=== PATIENT | female | born 1980 | race Caucasian/White ===

== ENCOUNTER 2024-09-18 02:04 | Inpatient (IN) | payer BC, SELFPAY ==
[2024-09-17 21:12] VITALS: BP 167/105
--- NOTE | 2024-09-17 22:10 | ED.GENMED ---
History of Present Illness
General
Chief Complaint: Abdominal Pain
Source: patient
Exam Limitations: none
Time Seen by Provider: 09/17/24 22:01
History of Present Illness
History of Present Illness:
Pleasant 44-year-old female presents with right upper quadrant abdominal pain. She states that it began yesterday but has progressively worsened today. Today there was a republican that she was out but she was only able to eat crackers. She states
that any type of oral intake exacerbates her symptoms. Denies fever, chills reports some nausea without vomiting. States that her pain is located in the right upper quadrant and radiates through to her right back. Denies chest pain or shortness
of breath. Denies previous abdominal surgeries. She did have a ovarian cyst removed as well as a cyst on her breast. Last intake was approximately 11 AM today.
Phy Exam
General Physical Exam
General Presentation: moderate distress
General age: appears stated age
General Skin: warm
General Habitus: normal
General Mental: alert
General Hydration: appears well hydrated
ENT Exam
ENT Exam: EOMI, pharynx normal, neck supple and normocephalic
Eye Exam
Eye Exam: PERRL, cornea clear and conjunctiva normal
Cardiovascular Exam
Cardiovascular Exam: regular rate/rhythm, no edema, no murmur and normal peripheral pulses
Pulmonary Exam
Pulmonary Exam: lungs clear, no respiratory distress, no rales, no crackles, no rhonchi, no stridor, no wheezing and no cough
Gastrointestinal Exam
Gastrointestinal Exam: normal bowel sounds, soft, non distended, guarding, rebound and tender
Palpation: right upper quadrant: Severe tenderness
Neurological Exam
Neurological Exam: alert, oriented x3, no motor deficits and speech normal
Musculoskeletal Exam
Musculoskeletal Exam: full ROM and no edema
Skin Exam
Skin Exam: normal color, warm/dry, no rash and no petechia
Psychiatric Exam
Psychiatric Exam: normal mood/affect
Course
Orders/Labs/Results
Orders:
Orders
09/17/24 22:11
0.9% Sodium Chloride 1000 ml [Nss] 1,000 ml IV BOLUS
Ondansetron Injectable [Zofran] 4 mg IV NOW STA
US Abdomen Complete/Upper Urgent
Comment:
Reason For Exam: ruq abd pain
09/17/24 22:14
Urinalysis Reflex To Culture Urgent
Date Specimen was Collected: 09/18/24
Time Specimen was Collected: 00:54
Ketorolac [Toradol] 15 mg IV NOW STA
Test Result ONCE
09/17/24 22:44
Complete Blood Count/With Diff Urgent
Comprehensive Metabolic Panel Urgent
HCG, Serum Qualitative Screen Urgent
Lipase Urgent
PTT Urgent
Prothrombin Time Urgent
09/18/24 00:09
CT Abd/pelvis W Iv Cont Urgent
Comment:
Reason For Exam: RUQ abd pain
Piperacillin/Tazo 4.5 Gram [Zosyn] 4.5 gram in 100 ml IV NOW
09/18/24 01:10
Urine Microscopic Reflex Cult Urgent
09/18/24 01:51
Admit/Transfer Patient As Directed
Co-Sign Provider:
Level of Care: Inpatient admission
Assign to:: Medical/Surgical
Physician / Group: hospitalist
Diagnosis: choledocholithiasis
Reason for Hospitalization: biliary cholic, obstructing choledocholithiasis
Expected length of stay greater than two midnights?: Yes
ELOS- Estimated Length of Stay in days: 2
I certify the patient meets the requirements for IP care: Yes
09/18/24 01:52
Code Status As Directed
Resuscitation Status: Full Code
PRN Pain Medication Management As Directed
May give lesser potent ordered pain med per pt: Yes
preference::
Protocol:: Medication orders for pain may be administered in a
manner that supports deferring to patient preference
when the pt is:
- Requesting an ordered lesser potent pain medication.
Least to most potent pain medications are defined
as: acetaminophen < NSAID < tramadol < opioids
(morphine, oxycodone, hydromorphone).
- Requesting a lesser dose of the same medication IF
ORDERED.
- Requesting a less intrusive route of administration
if both routes are prescribed by the provider (PO <
IV).
09/18/24 02:00
Flush (0.9% Sodium Chloride) [Flush (Nss)] See Dose Instructions IV PER PROTOCOL
09/18/24 03:28
Acetaminophen [Tylenol] 650 mg PO Q4HPRN PRN
HYDROmorphone [Dilaudid] 0.5 mg IV Q4HPRN PRN
Ketorolac [Toradol] 10 mg IV Q6HPRN PRN
Lactated Ringers [Lr] 1,000 ml IV 60 mls/hr
Ondansetron Injectable [Zofran] 4 mg IV Q6HPRN PRN
09/18/24 03:28
Consult Notification Routine
Specialty to Notify: Gastroenterology
GASTROINTESTINAL CONSULT Routine
Consulting Provider: Sarath Caballero
Was physician already notified: No
Reason for consult: choledocholithiasis, transaminitis, nml lipase and tbili
SURGICAL CONSULT Routine
Consulting Provider: Josiah Schultz
Was physician already notified: Yes
Reason for consult: choledocholithiasis,
MR Mrcp Without Routine
Comment:
Reason For Exam: choledocholithiasis, stone in cbd
Recent pill cam endoscopy?: No
Activity As Directed
Activity Level: With Assistance
Vital Signs As Directed
Frequency: Per unit guidelines
DX Deep Vein Thrombosis Video Routine
09/18/24 05:48
Complete Blood Count/No Diff IN AM
Magnesium IN AM
09/18/24 Breakfast
NPO
Allow oral meds: No
Allow clear liquids: Sips of Clears
09/18/24 08:00
Pantoprazole [Protonix IV] 40 mg IV DAILY
09/18/24 18:00
Enoxaparin Sodium [Lovenox] 40 mg SC QPM
Abnormal Lab Results
09/17/24 09/18/24
22:44 01:10
Hgb 11.5 L g/dL
(12.0-16.0)
Hct 36.1 L %
(37.0-47.0)
MCV 79.9 L fL
(81.0-99.0)
MCH 25.4 L pg
(27.0-31.0)
MCHC 31.9 L g/dL
(33.0-37.0)
MPV 10.7 H fL
(7.4-10.4)
Absolute Lymphs (auto) 1.0 L 10^3/uL
(1.2-3.4)
Lymphocytes % 15.1 L %
(20.5-51.1)
Potassium 3.2 L mmol/L
(3.5-5.1)
BUN 5 L mg/dl
(7-17)
Glucose 110 H mg/dl
(70-99)
Total Bilirubin 5.1 H mg/dl
(0.2-1.3)
AST 368 H U/L
(14-36)
ALT 518 H* U/L
(0-35)
Alkaline Phosphatase 156 H U/L
(38-126)
Urine Ketones 3+ A
(Negative)
Ur Occult Blood Reflex 3+ A
(Negative)
Urine Bilirubin 2+ A
(Negative)
Leukocyte Esterase Rfl Trace A
(Negative)
Urine RBC 3-6 A /HPF
(0-2)
Urine Bacteria (Reflex) Few A
(Negative)
09/17/24 22:44
09/17/24 22:44
Vital Signs
Initial and Last Documented VS:
Initial Vital Signs
Temp Pulse Resp BP Pulse Ox
98.2 F 99 18 167/105 100
09/17/24 21:12 09/17/24 21:12 09/17/24 21:12 09/17/24 21:12 09/17/24 21:12
Last Documented Vital Signs
Temp Pulse Resp BP Pulse Ox
98.5 F 71 16 132/84 98
09/18/24 03:03 09/18/24 03:03 09/18/24 03:03 09/18/24 03:03 09/18/24 04:45
*Radiology
Radiology exam reviewed: radiology read reviewed
*Pulse Oximetry
Patient hypoxic: no
*Critical Care Note
Total Time (30-74mins, 75-104mins- exclusive of procedures): Not Applicable
Update Note
Update Note:
Spoke with Josiah Schultz, general surgery who recommends CAT scan and admission to hospitalist service. He was okay with us starting Zothienn. She will need an MRI, GI consult, admit to medicine. She likely has choledocholithiasis and potentially
ascending cholangitis
CT ABDOMEN/PELVIS WITH CONTRAST
IMPRESSION:
1. Multiple stones seen within the distal CBD, with largest measuring up to 1.3 x 0.5 cm, and smaller stone measuring up to 5 mm. The CBD is enlarged measuring up to 9 mm. Findings compatible with choledocholithiasis.
2. Mild peripancreatic stranding, can be correlated with signs or symptoms of pancreatitis. No pseudocyst formation. No bowel obstruction. Normal appendix. Cholelithiasis.
Incidentals:
- No obstructive uropathy.
- No hepatic or pancreatic mass.
- No abdominal aortic aneurysm.
- No acute osseous abnormality.
- No acute abnormality within the visualized lungs.
- No acute abnormality within the visualized soft tissues.
Case finalized on Sep 18 2024 12:47AM ET
ED Attending Note
-
Portions of this chart may have been created with voice recognition software.� Occasional wrong word or��sound alike� substitutions may have occurred due to the inherent limitations of voice recognition software.
Discharge Plan
Departure
Patient Disposition: Admit
Date of Disposition: 09/18/24
Time of Disposition: 01:05
Admit to: Telemetry
Presentation/result/management discussed w/ accepting MD/DO: Hospitalist
Condition: Fair
Discharge Problem:
Choledocholithiasis
Interventions
Interventions:
*Risk Screen - Suicide Last Done: 09/17/24 22:28
*General Assessment Last Done: 09/17/24 22:28
*Neglect/Abuse Screening Last Done: 09/17/24 22:28
ED- Fall Risk Assessment Last Done: 09/17/24 22:28
*ED COVID-19 Vaccine History Last Done: 09/17/24 22:28
*Nursing Disposition Last Done: 09/18/24 02:56
CW-Wanpxa-Rhcavxcjyq Assessment Last Done: 09/17/24 22:28
Discharge Date and Time
Discharge Date/Time: 09/18/24 02:57
[2024-09-17 22:28] VITALS: BMI 39.6
[2024-09-17] MEDS: TORADOL 15 MG IV (22:45)
[2024-09-17] MEDS: NSS 1000 IV (22:45)
[2024-09-17] MEDS: ZOFRAN 4 MG IV (22:45)
[2024-09-17 22:52] LABS: % Basophils 0.9 % (0-2); % Immature Granulocytes 0.5 % (0-0.5); % Lymphocytes 15.1 % (20.5-51.1); % Monocytes 8.4 % (1.7-9.3); % Neutrophils 71.1 % (42.2-75.2); Absolute Basophils 0.1 10^3/uL (0-0.2); Absolute Eosinophils 0.3 10^3/uL (0-0.7); Absolute Monocytes 0.5 10^3/uL (0.1-0.6); Absolute Neutrophils 4.6 10^3/uL (1.4-6.5); Hematocrit 36.1 % (37.0-47.0); Hemoglobin 11.5 g/dL (12.0-16.0); Mean Corp Hgb Conc. 31.9 g/dL (33.0-37.0); Mean Corpuscular Hgb 25.4 pg (27.0-31.0); Mean Corpuscular Volume 79.9 fL (81.0-99.0); Mean Platelet Volume 10.7 fL (7.4-10.4); Nucleated Red Blood Cells % 0 %; Platelet Count 277 10^3/uL (130-400); Red Blood Cell Count 4.52 10^6/uL (4.20-5.40); Red Cell Dist. Width 13.8 % (11.5-14.5); White Blood Cell Count 6.4 10^3/uL (4.8-10.8)
[2024-09-17 23:04] LABS: INR 1.07; PT 14.4 Sec (11.4-14.6)
[2024-09-17 23:05] LABS: APTT 29.6 Sec (23.4-35.0)
[2024-09-17 23:06] LABS: HCG, Serum Qualitative Screen Negative
[2024-09-17 23:47] LABS: ALT (SGPT) 518 U/L (0-35); AST (SGOT) 368 U/L (14-36); Albumin 4.5 g/dl (3.5-5.0); Alkaline Phosphatase 156 U/L (38-126); Blood Urea Nitrogen 5 mg/dl (7-17); Calcium 9.3 mg/dl (8.4-10.2); Carbon Dioxide 24 mmol/L (22-30); Chloride 101 mmol/L (98-107); Estimated Creatinine Clearance > 125 ml/min; Glucose 110 mg/dl (70-99); Lipase 102 U/L (23-300); Potassium 3.2 mmol/L (3.5-5.1); Sodium 135 mmol/L (135-145); Total Bilirubin 5.1 mg/dl (0.2-1.3); Total Protein 7.4 g/dl (6.3-8.2); eGFR > 60.00
[2024-09-18] VITALS (13 sets, daily range): BP systolic 121–161; BP diastolic 65–93; BMI 38.4
[2024-09-18] MEDS: ZOSYN 100 IV (00:15)
[2024-09-18 01:17] LABS: Urine Albumin Negative (Neg - Trace); Urine Bilirubin 2+ (Negative); Urine Character Clear (Clear); Urine Color Yellow; Urine Glucose Negative (Negative); Urine Ketone 3+ (Negative); Urine Leukocyte Trace (Negative); Urine Nitrite Negative (Negative); Urine Occult Blood 3+ (Negative); Urine Urobilinogen 1+ (Neg - 1+)
[2024-09-18 01:27] LABS: Urine Bacteria Few (Negative); Urine White Cell 0-2 /HPF (0-5)
--- NOTE | 2024-09-18 01:42 | HPS.HSE ---
Family Physician
-
Family Physician: * NONE
Chief Complaint
-
Right upper quadrant abdominal pain
History of Present Illness
This is a 41-year-old female was past medical history significant for hypertension and GERD presenting to the emergency department with approximately 2 days of abdominal pain.
The pain began at around 2 AM abruptly about 2 days ago. She reports a right upper quadrant painful sensation that lasted several minutes and then appeared to resolve on its own so that she was able to sleep. The following day she started to have
more persistent squeezing abdominal pain and some bloating. She had nausea but denied any vomiting. She denied having any fevers or chills. Today she reported that the pain was more severe and appeared to be radiating to the back. She still
continued to deny any nausea or vomiting. She reports no prior history of kidney stones. She denies gallstones. She denies any dysuria, hematuria frequency or incontinence. She denied any melena or hematochezia. Patient denies any alcohol use.
In the emergency department she was afebrile with a blood pressure of 134/80 and a pulse of 99. She was satting 98% on room air. She had no leukocytosis hemoglobin was 11.5 which was stable. White count 6.4 and normal platelet count.
Electrolytes only notable for a K of 3.2 with otherwise normal BUN and creatinine. She had elevated AST to 308, ALT 11/04/2017 and mild alk phos elevation. Lipase was normal. Ultrasound shows dilated CBD of 9 mm and no gallstones. He had a CT of
the abdomen pelvis which confirmed distal CBD stones of about 1.3 x 0.5cm and additional 5mm stones noted. No GB distention or pericholecystic fluid described. Mild peripancreatic stranding reported.
Medical History
Past Medical History
Past Medical History: Reports GERD and HTN
Past Surgical History: Reports Gynocological (ovarian cyst removal) and Other (benign lumpectomy)
Social History
Tobacco: Non-smoker
Alcohol: None
Drug: None
Personal:
Living: With Family
Employment: Employed
Family History
Family History: Diabetes and Hypertension
Allergies / Home Medications
Allergies reflects when Allergies were last updated in [facility].
Home Medications with original date entered in [facility]
Allergy/Medication List:
Allergies
Allergy/AdvReac Type Severity Reaction Status Date / Time
No Known Allergies Allergy Unverified 09/17/24 21:11
Carvedilol 6.25 mg tablet, 1 tablet p.o. twice daily
Nexium 40 mg tablet, 1 tablet p.o. daily
Hydrochlorothiazide 12.5 mg tablet, 1 tablet p.o. daily
Review of Systems
-
History Source: Patient
Constitutional: Reports No Symptoms
EENT: Reports No Symptoms
Respiratory: Reports No Symptoms
Cardiac: Reports No Symptoms
Abdomen/GI: Reports Abdominal Pain
: Reports No Symptoms
Musculoskeletal: Reports No Symptoms
Skin: Reports No Symptoms
Neurological: Reports No Symptoms
Endocrine: Reports No Symptoms
Hematologic/Lymphatic: Reports No Symptoms
Psych: Reports No Symptoms
Physical Exam
Vital Signs
Vital Signs
Temp Pulse Resp BP Pulse Ox
98.2 F 99 18 134/80 100
09/17/24 21:12 09/17/24 21:12 09/17/24 22:28 09/18/24 00:00 09/18/24 00:45
Physical Exam
General: Well Developed, Well Nourished and Pain
HEENT: NormoCephalic, Anicteric and Moist mucous membranes
Respiratory: Clear
Cardiac: S1/S2 and Regular Rhythm
Breast: Deferred by me
GI: Soft, Non Distended, Normal Bowel Sounds and Tender
Rectal: Deferred by Provider
Genito-urinary: Deferred by me
Musculoskeletal: No Clubbing and No Cyanosis
Skin: Warm
Neuro: AO x 3
Hematologic/Lymphatic: No Lymphadenopathy
Psych: Calm
Laboratory Results
-
09/17/24 22:44
09/17/24 22:44
Laboratory Results
PT 14.4 Sec (11.4-14.6) 09/17/24 22:44
INR 1.07 09/17/24 22:44
APTT 29.6 Sec (23.4-35.0) 09/17/24 22:44
Total Bilirubin 5.1 mg/dl (0.2-1.3) H 09/17/24 22:44
AST 368 U/L (14-36) H 09/17/24 22:44
ALT 518 U/L (0-35) H* 09/17/24 22:44
Alkaline Phosphatase 156 U/L (38-126) H 09/17/24 22:44
Lipase 102 U/L (23-300) 09/17/24 22:44
Data Reviewed
-
CT Scan: Report Reviewed by me
Ultrasound: Report Reviewed by me
Lab Data: Labs Reviewed by me
Old Records: Reviewed
Impression/Plan
-
IMPRESSION:
44 F w/ choledocholithiasis and elevated LFTs w/o acute cholecystitis. No cholangitis.
PLAN:
1. Choledocholithiasis - Stones in CBD but no GB stone, acute cholecystitis or cholangitis. Pain but otherwise non-toxic.
- admit to med/surg
- NPO, pain control and antiemetics
- maintenance hydration
- hold further abx unless condition changes
- MRCP in am
- GI consult
- surgery consulted and aware
2. Hypokalemia - On hctz
- check mag
- replete K for now and monitor
3. GERD
- iv ppi daily for now
4. HTN
- continue carvedilol
- hold hctz
DVT PPX - lovenox sq
Code status - Full Code
[2024-09-18] MEDS: KCL 270 MEQ IV (04:05)
[2024-09-18] MEDS: LR 1000 IV ×2 (04:05→22:30)
--- NOTE | 2024-09-18 05:01 | PTCARENOTE ---
Pt received from ED via stretcher. Ambulated to bed independently. AAOx3, verbalizes being a 'little anxious' Oriented to surroundings and plan of care discussed. Admission and assessment completed. Reports pain 2/10 in R upper abdomen as
tolerable. Started menses, supplies provided. Last BM 09/17, reports pale stools. RAC IV painful when flushed, VAT RN contacted for restart. RH w/LR and K rider infusing without complication. Call jennings within reach.
[2024-09-18 06:52] LABS: Hematocrit 32.4 % (37.0-47.0); Hemoglobin 10.3 g/dL (12.0-16.0); Mean Corp Hgb Conc. 31.8 g/dL (33.0-37.0); Mean Corpuscular Hgb 25.1 pg (27.0-31.0); Mean Platelet Volume 11.5 fL (7.4-10.4); Platelet Count 264 10^3/uL (130-400); Red Cell Dist. Width 13.8 % (11.5-14.5); White Blood Cell Count 5.2 10^3/uL (4.8-10.8)
[2024-09-18 07:14] LABS: ALT (SGPT) 408 U/L (0-35); AST (SGOT) 270 U/L (14-36); Albumin 3.7 g/dl (3.5-5.0); Alkaline Phosphatase 141 U/L (38-126); Blood Urea Nitrogen 4 mg/dl (7-17); Calcium 8.7 mg/dl (8.4-10.2); Carbon Dioxide 24 mmol/L (22-30); Chloride 105 mmol/L (98-107); Direct Bilirubin 3.5 mg/dl (0.0-0.4); Estimated Creatinine Clearance 120 ml/min; Glucose 100 mg/dl (70-99); Potassium 3.6 mmol/L (3.5-5.1); Sodium 138 mmol/L (135-145); Total Bilirubin 4.7 mg/dl (0.2-1.3); Total Protein 6.4 g/dl (6.3-8.2); eGFR > 60.00
[2024-09-18] MEDS: NSS (PRESERVATIVE FREE) 10 ML IV (08:06)
[2024-09-18] MEDS: PROTONIX IV 40 MG IV (08:07)
--- NOTE | 2024-09-18 09:21 | CON.GS ---
Addendum entered and electronically signed by Ollie Herman MD 09/18/24 11:38:
Patient seen examined. Agree with assessment plan as document above.
Patient is a 44 yo F with a PMH of GERD c/b Graves's esophagus, HTN, and s/p ovarian cystectomy who presents with 2 days of worsening upper abdominal pain. She states that over the past 1 to 2 months she has had intermittent more mild attacks of
discomfort particularly with heavy fatty foods. 2 days ago she was awakened in the middle of the night with severe epigastric discomfort. Her symptoms appeared to initially ease though immediately returned and worsened throughout the course of
next 24 hours prompting presentation to the ED. No nausea or vomiting. No fevers or chills. She does note pale stools and orange-colored urine. She denies any jaundice.
Gen: NAD
Abd: soft, tender in epigastrium, ND, obese, non-peritoneal
Labs, ultrasound, and CT scan imaging were reviewed.
Patient is a 44 yo F p/w choledocholithiasis
The natural history and pathophysiology of biliary and stone disease was discussed. Anatomy was briefly reviewed. Role of cholecystectomy in preventing future episodes of biliary colic, cholecystitis, or choledocholithiasis was discussed. We
briefly discussed a laparoscopic cholecystectomy with possible cholangiogram. GI consult noted. Timing of cholecystectomy pending workup and management by GI. All questions answered.
-- GI consult noted
-- Timing of lap natasha pending work-up and management
-- Will continue to follow
Original Note:
Consultation
-
Date/Time Consultation Requested: 09/18/24 0328
Requesting Provider: Ronald
Reason for Consultation: choledocholithiasis
Medical History
-
Chief Complaint: abdominal pain
History of Present Illness:
Ms. Patrick is a 44 yo female with a h/o Graves's esophagus, HTN and ovarian cystectomy who presents with upper abdominal pain which began 2 days ago around 2am. She notes that over the past 1-2 months, she has had upper abdominal discomfort with
rich or heavy meals intermittently and had been avoiding trigger foods. Unfortunately, 2 days ago, she awakened in the middle of the night with upper abdominal pain which was more severe than previous. It eased enough for her to fall back asleep but
then returned and persisted with onset of nausea yesterday causing her to present to the ED for evaluation. She denies vomiting and notes nausea is currently resolved. She notes that her last stool was acholic and her urine has been neon orange. On
exam, she has tenderness to the epigastric area and the RUQ. She denies fevers or chills.
Past Medical History
Past Medical History: GERD (Graves's) and HTN
Past Surgical History: Gynecological (ovarian cystectomy) and Other (lumpectomy (benign))
Social History
Tobacco: Non-Smoker
Alcohol: None
Personal:
Living: With Family
Employment: Employed
Family History
Family History: Diabetes and Hypertension
Allergies / Home Medications
Allergy/AdvReac Type Severity Reaction Status Date / Time
No Known Allergies Allergy Unverified 09/17/24 21:11
Review of Systems
-
History Source: Patient
All other systems: Negative unless noted
A 10 point review of systems was completed, and was negative except as per HPI.
Physical Exam
Vital Signs
Temp Pulse Resp BP Pulse Ox
98.5 F 85 16 136/88 99
09/18/24 07:15 09/18/24 07:15 09/18/24 07:15 09/18/24 07:15 09/18/24 07:15
09/17/24 09/18/24 09/19/24
06:59 06:59 06:59
Actual Weight 101.293 kg
Body Mass Index (BMI) 38.4
Lab Results
09/18/24 05:48
09/18/24 05:48
WBC 5.2 10^3/uL (4.8-10.8) 09/18/24 05:48
Hgb 10.3 g/dL (12.0-16.0) L 09/18/24 05:48
Hct 32.4 % (37.0-47.0) L 09/18/24 05:48
Plt Count 264 10^3/uL (130-400) 09/18/24 05:48
Abs Immat Gran (auto) 0.0 10^3/uL (0-0.05) 09/17/24 22:44
Neutrophils % 71.1 % (42.2-75.2) 09/17/24 22:44
Physical Exam
General: Well Developed and Well Nourished
HEENT: Moist Mucous Membranes and Scleral Icterus
Respiratory: Non Labored Respirations
GI: Soft, Non Distended, Tender (RUQ and epigastric area) and Obese
Skin: Warm and Dry
Neuro: Awake, Alert and AO x 3
Psych: Calm
Assessment / Plan
-
44 yo female with h/o biliary colic x1-2 months now presenting with choledocholithiasis noted on CT imaging with elevation in LFTs (bilirubin 4.7 with direct bilirubin of 3.5, normal lipase)
US imaging wnl but follow up CT with noted cholelithiasis and choledocholithiasis with possible pancreatitis but no pericholecystic stranding or edema that would indicate acute cholecystitis. No leukocytosis or fevers. Vital signs are stable.
--Gastroenterology consult pending. Anticipate she will require ERCP
--NPO for GI testing
--Discussed laparoscopic cholecystectomy as prevention for future episodes. Would recommend this to be done on this admission, timing TBD pending GI work up
--- NOTE | 2024-09-18 09:50 | W.PN.UPDATE ---
Update Note
Progress Note Update
Nonbillable addendum (H&P submitted around 145 AM)
Admitted with choledocholithiasis on CT. MRI pending. GS/GI consulting.
currently asymptomatic, NPO.
Assessment:
Choledocholithiasis with elevated T. Bili and elevated LFTs
- CT: Choledocholithiasis with common bile duct dilatation. Cholelithiasis
- Radiographic possibility of pancreatitis although lipase normal
- MRI/MRCP pending
- GI consulted; likely ERCP today. NPO for now
- GS consulted; lap natasha timing TBD
- pain control, anti-emetics
- continue IVF
- continue IV Zosyn, day 1
Hypokalemia
- continue KCL replacement
- mag normal
GERD
Graves esophagus
- IV PPI
Essential HTN by history
- hold HCTZ
- continue Carvedilol
Anemia, slightly microcytic
- check anemia workup
DVT ppx: Lovenox
Code: Full
--- NOTE | 2024-09-18 10:29 | CON.GI ---
Addendum entered and electronically signed by Sarath Caballero MD 09/18/24 14:14:
I saw and evaluated the patient. I reviewed the resident�s note and agree with findings and plan as documented in the resident�s note.
44yo female presents with several months of mild RUQ pain, then 2 days of severe RUQ pain, worse after meals. Also stool light colored. AST 368, ALT 518, TB 5. US shows 9mm CBD. CT shows distal CBD stones. Lipas normal. WBC normal.
ABD soft moderate tender RUQ
IMPRESSION:
Choledocholithiasis
Biliary colic
REC:
NPO
IV abx
Will schedule for ERCP either this afternoon or tomorrow depending on schedule
Plans underway for cholecystectomy after ERCP
Trend LFTs, CBC
MRI cancelled- not needed since CT confirms CBD stones, likely cause for her abd pain
Original Note:
Consultation
-
Date/Time Consultation Requested: 09/18/2024 3:28 AM
Date/Time Consultation Performed: 09/18/2024 10:25 AM
Requesting Provider: Alma Cardenas MD
Performing Provider: Sarath Caballero MD
Reason for Consultation: choledocholithiasis, transaminitis
Medical History
Chief Complaint / HPI
Chief Complaint: RUQ abdominal pain
History of Present Illness:
44-year-old female with PMH of GERD, hypertension, Graves's esophagus, ovarian cystectomy, who presented to ED on 09/17/2024 with RUQ abdominal pain that began 2 days MANAGER INFORMATION. Patient reports that abdominal pain has been waxing and waning for 1 to
2 months but worsened acutely necessitating her presentation. She reports abdominal pain worse with fatty meals which she has always avoided, however patient was awakened at 2 AM but was able to fall asleep afterwards. The pain returned and
persisted with nausea but no vomiting later in the day. Patient also reports acholic stool and greenish urine but denies fever, chills, or chest pain. While in the emergency department, patient was afebrile and vital signs were stable. AST is
elevated at 368, ALT 518, ALP 156, T. bili 5.1. Her potassium was 3.2 and hemoglobin 11.5.An abdominal ultrasound done was positive for 9 mm dilated common bile ducts with no gallstones. However, a follow-up CT scan of abdomen and pelvis with IV
contrast reported choledocholithiasis with common bile duct dilation, cholelithiasis and possible interstitial edematous pancreatitis. Patient was admitted and GI was consulted for further evaluation and management.
Today, patient is feeling better, reports minimal abdominal pain, denies nausea and vomiting, denies fever, chills, chest pain. She remains afebrile with normal white count. Transaminitis improving, T. bili down to 4.7 with direct bilirubin 3.8.
Past Medical History
Past Medical History: GERD, HTN and Other (Graves's esophagus)
Past Surgical History: Gynecological (Ovarian cystectomy, benign lumpectomy)
Social History
Tobacco: Non-Smoker
Alcohol: None
Drug: None
Personal:
Living: With Family
Employment: Not Employed
Allergies / Home Medications
Allergy/AdvReac Type Severity Reaction Status Date / Time
No Known Allergies Allergy Unverified 09/17/24 21:11
�Medication �Instructions �Recorded
carvedilol 6.25 mg tablet 6.25 mg PO BID 09/18/24
hydrochlorothiazide 12.5 mg tablet 12.5 mg PO DAILY 09/18/24
Review of Systems
-
History Source: Patient
Constitutional: Reports No Symptoms
EENT: Reports No Symptoms
Respiratory: Reports No Symptoms
Cardiac: Reports No Symptoms
Abdomen/GI: Reports Abdominal Pain; Denies Nausea or Vomiting
: Reports No Symptoms
Musculoskeletal: Reports No Symptoms
Skin: Reports No Symptoms
Neurological: Reports No Symptoms
Endocrine: Reports No Symptoms
Hematologic/Lymphatic: Reports No Symptoms
Vital Signs
Temp Pulse Resp BP Pulse Ox
98.5 F 85 16 136/88 99
09/18/24 07:15 09/18/24 07:15 09/18/24 07:15 09/18/24 07:15 09/18/24 07:15
Physical Exam
Exam
General: Well Developed, Well Nourished and No Apparent Distress
HEENT: Normocephalic, Anicteric and Atraumatic
Respiratory: Clear and Non Labored Respirations
Cardiac: S1/S2 and Regular Rhythm
GI: Soft, Non Distended, Normal Bowel Sounds and Tender (Mildly tender in RUQ)
Genito-urinary: No Costovertebral Tender
Musculoskeletal: No Clubbing, No Cyanosis and No Edema
Skin: Warm
Neuro: Awake, AO x 3 and Nonfocal/Grossly Intact
Hematologic/Lymphatic: No Lymphadenopathy
Psych: Calm
Results
WBC 5.2 10^3/uL (4.8-10.8) 09/18/24 05:48
Hgb 10.3 g/dL (12.0-16.0) L 09/18/24 05:48
Hct 32.4 % (37.0-47.0) L 09/18/24 05:48
MCV 79.0 fL (81.0-99.0) L 09/18/24 05:48
Plt Count 264 10^3/uL (130-400) 09/18/24 05:48
Absolute Neuts (auto) 4.6 10^3/uL (1.4-6.5) 09/17/24 22:44
PT 14.4 Sec (11.4-14.6) 09/17/24 22:44
INR 1.07 09/17/24 22:44
APTT 29.6 Sec (23.4-35.0) 09/17/24 22:44
Sodium 138 mmol/L (135-145) 09/18/24 05:48
Potassium 3.6 mmol/L (3.5-5.1) 09/18/24 05:48
Chloride 105 mmol/L (98-107) 09/18/24 05:48
Carbon Dioxide 24 mmol/L (22-30) 09/18/24 05:48
BUN 4 mg/dl (7-17) L 09/18/24 05:48
Creatinine 0.7 mg/dL (0.6-1.0) 09/18/24 05:48
Calcium 8.7 mg/dl (8.4-10.2) 09/18/24 05:48
Total Bilirubin 4.7 mg/dl (0.2-1.3) H 09/18/24 05:48
AST 270 U/L (14-36) H 09/18/24 05:48
ALT 408 U/L (0-35) H 09/18/24 05:48
Alkaline Phosphatase 141 U/L (38-126) H 09/18/24 05:48
Lipase 102 U/L (23-300) 09/17/24 22:44
Diagnostic Image Results:
CT abdomen/pelvis 09/18/2024:
1. Choledocholithiasis with common bile duct dilatation.
2. Cholelithiasis.
3. Possible acute interstitial edematous pancreatitis in the appropriate clinical context.
Abdominal ultrasound 09/17/2024:
No gallstones.
Slightly dilated common bile duct, 9 mm. Recommend correlation with liver function tests.
Suboptimal visualization of the pancreas.
Assessment / Plan
-
44-year-old female with PMH of GERD, hypertension, Graves's esophagus, ovarian cystectomy, who presented to ED on 09/17/2024 with RUQ abdominal pain that began [address] scan abdomen/pelvis positive for cholelithiasis, and
choledocholithiasis.
Assessment/plan:
#Acute abdominal pain-choledocholithiasis
-Transaminitis with cholecystic pattern, elevated direct bilirubin with choledocholithiasis confirmed on CT.
-N.p.o.
-Continue IV fluid.
-ERCP today following MRI for CBD stone retrieval.
-Eventually cholecystectomy during this admission per surgery.
-Pain control and antiemetics.
-Continue Zosyn.
#History of GERD
-Continue IV PPI
#Microcytic anemia
-Will defer anemia workup to primary team.
-
-
Thank you for consultation and allowing me to participate in the patient's care. Please call the signs and displays salesperson GI physician during the after hours with any questions or concerns.
[2024-09-18 10:41] LABS: Iron 72 ug/dl (37-170)
[2024-09-18 10:50] LABS: Percent Saturation 20 % (20-50); Total Iron Binding Capacity 354 ug/dl (265-497)
[2024-09-18] MEDS: COREG 6.25 MG PO ×2 (10:50→22:30)
[2024-09-18] MEDS: ZOSYN 50 IV ×3 (10:50→22:27)
[2024-09-18] MEDS: TYLENOL 650 MG PO (10:55)
--- NOTE | 2024-09-18 10:59 | CM ---
CM reviewed medical records. CM met with patient in room. Patient confirmed demographics. Patient lives with independently. Patient denies history of VN, SNF or DME. Patient does not have a PCP because she follows with her er manager.
Patient uses [facility] for medication services.
PLAN: home no needs
[2024-09-18 12:59] LABS: Ferritin 16.3 ng/ml (6.24-137)
[2024-09-18 13:30] LABS: Folate 9.1 ng/ml (2.76-20); Vitamin B12 743 pg/ml (239-931)
[2024-09-18] MEDS: ZOFRAN 4 MG IV (14:28)
[2024-09-18] MEDS: TORADOL 10 MG IV (14:28)
--- NOTE | 2024-09-18 16:10 | TRANSFER ---
pt arrived to unit at 1541 via stretcher from 1 acute care. LR running at 60ml/hr. pt ambulated from hallway to bed w/out assist. pt VSS. pt reports pain 10/09. assessment completed by this nurse.
[2024-09-18] MEDS: LOVENOX 40 MG SC (17:24)
--- NOTE | 2024-09-18 19:30 | PTCARENOTE ---
Assumed care of patient from previous RN, patient called down to GI lab for ERCP during change of shift. Patient alert and oriented, clothing removed, new gown provided. Patient ambulated from bed to stretcher. Will continue to monitor.
--- NOTE | 2024-09-18 22:00 | PTCARENOTE ---
Patient returned back from GI lab s/p ERCP with stent placed. Patient oriented, still drowsy from anesthesia. Ambulated short distance from stretcher to bed with assist of 2 person, patient unsteady. No complaints at this time, states she feels
better at this time, and less pressure present. Transferred back on 2LNC, oxygen sats in recovery low 90s. Will monitor on oxygen overnight. IVFs maintained, BPs elevated -- Coreg provided upon return, see MAR. Call jennings is within reach, will
monitor.
[2024-09-19] VITALS: BP 140/82
[2024-09-19] MEDS: DILAUDID 0.5 MG IV ×4 (00:04→22:50)
[2024-09-19] MEDS: TORADOL 10 MG IV ×2 (02:22→14:33)
[2024-09-19] MEDS: ZOSYN 50 IV ×4 (04:46→22:50)
[2024-09-19 07:46] LABS: Hematocrit 33.9 % (37.0-47.0); Hemoglobin 10.9 g/dL (12.0-16.0); Mean Corp Hgb Conc. 32.2 g/dL (33.0-37.0); Mean Corpuscular Hgb 25.2 pg (27.0-31.0); Mean Corpuscular Volume 78.5 fL (81.0-99.0); Mean Platelet Volume 11.4 fL (7.4-10.4); Platelet Count 248 10^3/uL (130-400); Red Blood Cell Count 4.32 10^6/uL (4.20-5.40); Red Cell Dist. Width 13.7 % (11.5-14.5); White Blood Cell Count 6.6 10^3/uL (4.8-10.8)
[2024-09-19 08:01] LABS: ALT (SGPT) 336 U/L (0-35); AST (SGOT) 175 U/L (14-36); Albumin 3.6 g/dl (3.5-5.0); Alkaline Phosphatase 130 U/L (38-126); Blood Urea Nitrogen 7 mg/dl (7-17); Calcium 8.7 mg/dl (8.4-10.2); Carbon Dioxide 19 mmol/L (22-30); Chloride 105 mmol/L (98-107); Estimated Creatinine Clearance 120 ml/min; Glucose 113 mg/dl (70-99); Potassium 4.1 mmol/L (3.5-5.1); Sodium 137 mmol/L (135-145); Total Bilirubin 2.8 mg/dl (0.2-1.3); Total Protein 6.5 g/dl (6.3-8.2); eGFR > 60.00
[2024-09-19 08:03] VITALS: BP 148/92
[2024-09-19] MEDS: COREG 6.25 MG PO ×2 (08:19→22:51)
[2024-09-19] MEDS: PROTONIX IV 40 MG IV (08:19)
[2024-09-19] MEDS: NSS (PRESERVATIVE FREE) 10 ML IV (08:19)
[2024-09-19] MEDS: FLUSH (NSS) 2 FLUSH IV ×5 (08:20→22:48)
--- NOTE | 2024-09-19 08:51 | W.PN.GI.CBS2 ---
Today's Communication / Plan
-
Please see assessment and plan for details.
Assessment / Plan
-
1. CBD stones: Status post ERCP with failed cannulation, status post pancreatic duct stent, overall doing well, with improved LFTs, no signs of pancreatitis. At this point will advance diet, continue to trend labs. Pending clinical course will
likely plan repeat ERCP on Saturday with Dr. Rodgers.
Subjective
Subjective
Date of Service: September 19, 2024
Patient okay, some mild right upper quadrant/back discomfort, though no severe pain, nausea, vomiting, no epigastric pain. No fevers or chills overnight.
Objective
Data Reviewed
Laboratory Data:
Laboratory Results
09/19/24 06:52
09/19/24 06:52
Laboratory Results
PT 14.4 Sec (11.4-14.6) 09/17/24 22:44
INR 1.07 09/17/24 22:44
APTT 29.6 Sec (23.4-35.0) 09/17/24 22:44
Magnesium 2.0 mg/dl (1.6-2.3) 09/18/24 05:48
Total Bilirubin 2.8 mg/dl (0.2-1.3) H 09/19/24 06:52
AST 175 U/L (14-36) H 09/19/24 06:52
ALT 336 U/L (0-35) H 09/19/24 06:52
Alkaline Phosphatase 130 U/L (38-126) H 09/19/24 06:52
Lipase 102 U/L (23-300) 09/17/24 22:44
Vital Signs and I&O:
Vital Signs
Temp Pulse Resp BP Pulse Ox
98.1 F 69 16 148/92 99
09/19/24 08:03 09/19/24 08:19 09/19/24 08:03 09/19/24 08:19 09/19/24 08:03
I&O
09/18/24 09/19/24 09/20/24
06:59 06:59 06:59
Intake Total 255 / 255 170 / 170
Balance 255 / 255 170 / 170
Physical Exam
Physical Exam
General: NAD
Abdomen: normal bowel sounds, soft, no tenderness, no masses or bruits, no ascites
--- NOTE | 2024-09-19 11:11 | W.PN.GS2 ---
Addendum entered and electronically signed by Ollie Herman MD 09/19/24 12:44:
Patient seen and examined. Agree with assessment as documented below.
No worsening abdominal pain. No nausea or vomiting. No fevers.
Gen: NAD
Abd: soft, mild tenderness, ND, non-peritoneal
Patient is a 44 yo F presenting with choledocholithiasis with elevated LFT's
AFVSS
LFT's trending back down
PPD#1 ERCP with failed cannulation, status post pancreatic duct stent
--Tolerating clears, advanced to FLD as per GI
--Repeat ERCP planned tentatively Saturday
--Timing of lap natasha pending work-up and management
Original Note:
Today's Communication / Plan
-
Diet as per GI
Assessment / Plan
-
44 yo female presenting with choledocholithiasis with elevated LFT's
AFVSS
LFT's trending back down
PPD#1 ERCP with failed cannulation, status post pancreatic duct stent
--Tolerating clears, advanced to FLD as per GI
--Repeat ERCP planned tentatively Saturday
--Timing of lap natasha pending work-up and management
Subjective Data
-
Date of Service: September 19, 2024
Patient seen and examined at bedside with Dr. Herman. Denies nausea, vomiting or pain.
Objective Data
-
Intake and Output
09/18/24 09/19/24 09/20/24
06:59 06:59 06:59
Intake Total 255 / 255 170 / 170
Balance 255 / 255 170 / 170
Intake:
Oral fluids 120 / 120
IV fluids (Total) 120 / 120 50 / 50
LR 50 / 50
IV piggybacks 135 / 135
Other:
Number of approximated MODERATE 1
amounts of urine
Vital Signs
Temp Pulse Resp BP Pulse Ox
98.1 F 69 16 148/92 99
09/19/24 08:03 09/19/24 08:19 09/19/24 08:03 09/19/24 08:19 09/19/24 08:03
Lab Results
09/19/24 06:52
09/19/24 06:52
Calcium 8.7 mg/dl (8.4-10.2) 09/19/24 06:52
Magnesium 2.0 mg/dl (1.6-2.3) 09/18/24 05:48
Total Bilirubin 2.8 mg/dl (0.2-1.3) H 09/19/24 06:52
Direct Bilirubin 3.5 mg/dl (0.0-0.4) H 09/18/24 05:48
AST 175 U/L (14-36) H 09/19/24 06:52
ALT 336 U/L (0-35) H 09/19/24 06:52
Alkaline Phosphatase 130 U/L (38-126) H 09/19/24 06:52
Total Protein 6.5 g/dl (6.3-8.2) 09/19/24 06:52
Albumin 3.6 g/dl (3.5-5.0) 09/19/24 06:52
Physical Exam
-
NAD
ABD soft, minimally tender to epigastric area, nd
--- NOTE | 2024-09-19 13:19 | W.PN.HOSP.TC ---
Today's Communication/Plan
-
continue IV Abx
full liquids
pain control
repeat ERCP Saturday
follow GI/GS recs
Assessment / Plan
Assessment / Plan
Assessment:
Choledocholithiasis with elevated T. Bili and elevated LFTs
- CT: Choledocholithiasis with common bile duct dilatation. Cholelithiasis
- s/p ERCP 09/18: with failed cannulation, status post pancreatic duct stent
- repeat ERCP 09/21
- GS consulted; lap natasha timing TBD pending repeat ERCP results
- pain control, anti-emetics
- continue IV Zosyn, day 2
- diet: full liquids
- trend LFTs, improving
Hypokalemia
- continue KCL replacement
- mag normal
GERD
Graves esophagus
- IV PPI continues
Essential HTN by history
- hold HCTZ
- continue Carvedilol
Anemia, slightly microcytic
- normal indices
- outpatient management
DVT ppx: Lovenox held as patient with active menses. SCDs ordered.
Code: Full
Anticipated Discharge: > 48 hours
Subjective/Interval History
-
Date of Service: September 19, 2024
mild RUQ pain/discomfort this AM, improved with pain meds
no nausea/vomiting/epigastric pain
Objective Data
-
Labs:
Laboratory Results
09/19/24
06:52
WBC 6.6
Hgb 10.9 L
Hct 33.9 L
Plt Count 248
Sodium 137
Potassium 4.1
Chloride 105
Carbon Dioxide 19 L
BUN 7
Creatinine 0.7
Glucose 113 H
Calcium 8.7
Total Bilirubin 2.8 H
AST 175 H
ALT 336 H
Alkaline Phosphatase 130 H
Vital Signs:
Vital Signs
Temp Pulse Resp BP Pulse Ox
98.1 F 69 16 148/92 99
09/19/24 08:03 09/19/24 08:19 09/19/24 08:03 09/19/24 08:19 09/19/24 08:03
I&O
09/18/24 09/19/24 09/20/24
06:59 06:59 06:59
Intake Total 255 / 255 170 / 170
Balance 255 / 255 170 / 170
Physical Exam
-
General: No Apparent Distress
HEENT: Normocephalic and Atraumatic
Respiratory: Negative Wheezes or Rales
Cardiac: Regular Rhythm and S1/S2
GI: Nondistended
Genito-urinary: No Costovertebral Tender
Musculoskeletal: No Edema
Neuro: AO x 3
Hematologic / Lymphatic: No Lymphadenopathy
Psych: Calm
Data Reviewed
-
Total Time Spent with Patient (in minutes): 44
Labs: Labs Reviewed by me
[2024-09-19 15:32] VITALS: BP 129/74
[2024-09-19] MEDS: LR 1000 IV (15:45)
[2024-09-19] MEDS: FLUSH (NSS) 4 FLUSH IV (15:47)
[2024-09-19] MEDS: ZOFRAN 4 MG IV ×2 (16:18→22:58)
[2024-09-19 23:00] VITALS: BP 131/60
[2024-09-20] MEDS: FLUSH (NSS) 2 FLUSH IV ×2 (04:11→21:27)
[2024-09-20] MEDS: ZOSYN 50 IV ×4 (04:11→21:26)
[2024-09-20] MEDS: TORADOL 10 MG IV ×3 (04:21→21:26)
[2024-09-20 07:00] VITALS: BP 143/82
[2024-09-20 07:38] LABS: % Basophils 0.4 % (0-2); % Eosinophils 2.9 % (0-6); % Immature Granulocytes 0.7 % (0-0.5); % Lymphocytes 14.6 % (20.5-51.1); % Monocytes 10.1 % (1.7-9.3); % Neutrophils 71.3 % (42.2-75.2); Absolute Eosinophils 0.2 10^3/uL (0-0.7); Absolute Immature Granulocytes 0.1 10^3/uL (0-0.05); Absolute Lymphocytes 1.1 10^3/uL (1.2-3.4); Absolute Monocytes 0.7 10^3/uL (0.1-0.6); Absolute Neutrophils 5.2 10^3/uL (1.4-6.5); Hematocrit 30.1 % (37.0-47.0); Hemoglobin 9.6 g/dL (12.0-16.0); Mean Corp Hgb Conc. 31.9 g/dL (33.0-37.0); Mean Corpuscular Hgb 25.1 pg (27.0-31.0); Mean Corpuscular Volume 78.8 fL (81.0-99.0); Mean Platelet Volume 11.2 fL (7.4-10.4); Nucleated Red Blood Cells % 0 %; Platelet Count 217 10^3/uL (130-400); Red Blood Cell Count 3.82 10^6/uL (4.20-5.40); Red Cell Dist. Width 14.3 % (11.5-14.5); White Blood Cell Count 7.2 10^3/uL (4.8-10.8)
[2024-09-20] MEDS: LR 1000 IV (07:42)
[2024-09-20] MEDS: PROTONIX IV 40 MG IV (07:44)
[2024-09-20] MEDS: NSS (PRESERVATIVE FREE) 10 ML IV (07:44)
[2024-09-20] MEDS: COREG 6.25 MG PO ×2 (07:44→21:25)
[2024-09-20 07:58] LABS: ALT (SGPT) 320 U/L (0-35); AST (SGOT) 205 U/L (14-36); Albumin 3.2 g/dl (3.5-5.0); Alkaline Phosphatase 106 U/L (38-126); Blood Urea Nitrogen 8 mg/dl (7-17); Calcium 8.6 mg/dl (8.4-10.2); Carbon Dioxide 25 mmol/L (22-30); Chloride 104 mmol/L (98-107); Direct Bilirubin 1.9 mg/dl (0.0-0.4); Estimated Creatinine Clearance 105 ml/min; Glucose 108 mg/dl (70-99); Potassium 3.5 mmol/L (3.5-5.1); Sodium 137 mmol/L (135-145); Total Bilirubin 2.7 mg/dl (0.2-1.3); Total Protein 5.8 g/dl (6.3-8.2); eGFR > 60.00
--- NOTE | 2024-09-20 09:07 | W.PN.GI.CBS2 ---
Today's Communication / Plan
-
Please see assessment plan for details.
Assessment / Plan
-
1. CBD stones: Status post ERCP with failed cannulation, status post pancreatic duct stent, overall doing okay, with improved LFTs, no signs of pancreatitis. Will continue to trend labs today, plan for repeat ERCP with Dr. Rodgers tomorrow. Surgery
following for cholecystectomy following clearance of CBD.
Subjective
Subjective
Date of Service: September 20, 2024
Patient feeling okay, some mild discomfort though no severe pain, nausea or vomiting, tolerating full code without difficulty. No fevers or chills.
Objective
Data Reviewed
Laboratory Data:
Laboratory Results
09/20/24 06:50
09/20/24 06:50
Laboratory Results
PT 14.4 Sec (11.4-14.6) 09/17/24 22:44
INR 1.07 09/17/24 22:44
APTT 29.6 Sec (23.4-35.0) 09/17/24 22:44
Magnesium 2.0 mg/dl (1.6-2.3) 09/18/24 05:48
Total Bilirubin 2.7 mg/dl (0.2-1.3) H 09/20/24 06:50
AST 205 U/L (14-36) H 09/20/24 06:50
ALT 320 U/L (0-35) H 09/20/24 06:50
Alkaline Phosphatase 106 U/L (38-126) 09/20/24 06:50
Lipase 102 U/L (23-300) 09/17/24 22:44
Vital Signs and I&O:
Vital Signs
Temp Pulse Resp BP Pulse Ox
97.9 F 73 16 143/82 97
09/20/24 07:00 09/20/24 07:00 09/20/24 07:00 09/20/24 07:00 09/20/24 07:00
I&O
09/19/24 09/20/24 09/21/24
06:59 06:59 06:59
Intake Total 170 / 170 960 / 960 650 / 650
Balance 170 / 170 960 / 960 650 / 650
Physical Exam
Physical Exam
General: NAD
Abdomen: normal bowel sounds, soft, mild epigastric tenderness, no masses or bruits, no ascites
--- NOTE | 2024-09-20 10:02 | W.PN.GS2 ---
Addendum entered and electronically signed by Ollie Herman MD 09/20/24 10:22:
Patient seen and examined. Agree with assessment plan as documented below.
Reports continued episodes of abdominal discomfort particularly after pain meds wear off. Associated nausea. No fevers or chills.
Gen: NAD
Abd: soft, mild tenderness in epigastrium, ND, non-peritoneal
Patient is a 44 yo female presenting with choledocholithiasis with elevated LFT's
PPD#2 ERCP with failed cannulation, status post pancreatic duct stent
AFVSS
LFT's trended down since initial ERCP, but remain elevated
No leukocytosis
Tentative plan for repeat ERCP on Saturday (09/21/2024.
--Continue liquids with NPO after MN for second ERCP
--Timing of lap natasha pending GI work-up and management
--Analgesics/antiemetics prn
Original Note:
Today's Communication / Plan
-
ERCP tomorrow
Assessment / Plan
-
44 yo female presenting with choledocholithiasis with elevated LFT's
AFVSS
LFT's trended down since initial ERCP, but remain elevated
No leukocytosis
PPD#2 ERCP with failed cannulation, status post pancreatic duct stent
--Continue liquids with NPO after MN for second ERCP
--Timing of lap natasha pending GI work-up and management
--Analgesics/atniemetics prn
Subjective Data
-
Date of Service: September 20, 2024
Patient seen and examined at bedside with Dr. Herman. Some nausea intermittently with persistent pain the the RUQ and epigastric area. Denies fevers/chills.
Objective Data
-
Intake and Output
09/19/24 09/20/24 09/21/24
06:59 06:59 06:59
Intake Total 170 / 170 960 / 960 650 / 650
Balance 170 / 170 960 / 960 650 / 650
Intake:
Oral fluids 120 / 120 960 / 960
IV fluids (Total) 50 / 50 550 / 550
LR 50 / 50
IV piggybacks 100 / 100
Other:
Number of approximated MODERATE 1 3 2
amounts of urine
Vital Signs
Temp Pulse Resp BP Pulse Ox
97.9 F 73 16 143/82 97
09/20/24 07:00 09/20/24 07:00 09/20/24 07:00 09/20/24 07:00 09/20/24 07:00
Lab Results
09/20/24 06:50
09/20/24 06:50
Calcium 8.6 mg/dl (8.4-10.2) 09/20/24 06:50
Magnesium 2.0 mg/dl (1.6-2.3) 09/18/24 05:48
Total Bilirubin 2.7 mg/dl (0.2-1.3) H 09/20/24 06:50
Direct Bilirubin 1.9 mg/dl (0.0-0.4) H 09/20/24 06:50
AST 205 U/L (14-36) H 09/20/24 06:50
ALT 320 U/L (0-35) H 09/20/24 06:50
Alkaline Phosphatase 106 U/L (38-126) 09/20/24 06:50
Total Protein 5.8 g/dl (6.3-8.2) L 09/20/24 06:50
Albumin 3.2 g/dl (3.5-5.0) L 09/20/24 06:50
Physical Exam
-
NAD
ABD soft, tender to epigastric area/RUQ, nd
[2024-09-20] MEDS: ZOFRAN 4 MG IV ×2 (10:10→18:40)
--- NOTE | 2024-09-20 11:06 | W.PN.HOSP.TC ---
Today's Communication/Plan
-
NPO p MN for repeat ERCP tomorrow
IVF and IV Abx for now
Assessment / Plan
Assessment / Plan
Assessment:
Choledocholithiasis with elevated T. Bili and elevated LFTs
- CT: Choledocholithiasis with common bile duct dilatation. Cholelithiasis
- s/p ERCP 09/18: with failed cannulation, status post pancreatic duct stent
- repeat ERCP planned 09/21
- GS consulted; lap natasha timing TBD pending repeat ERCP results
- pain control, anti-emetics
- continue IV Zosyn, day 3
- diet: full liquids
- trend LFTs, improving
Hypokalemia
- continue KCL replacement
- mag normal
GERD
Graves esophagus
- IV PPI continues
Essential HTN by history
- hold HCTZ
- continue Carvedilol
Anemia, slightly microcytic
- normal indices
- outpatient management
DVT ppx: Lovenox held as patient with active menses. SCDs ordered.
Code: Full
Anticipated Discharge: > 48 hours
Subjective/Interval History
-
Date of Service: September 20, 2024
feeling okay, some discomfort but otherwise no nausea/vomiting. Tolerating full liquids
Objective Data
-
Labs:
Laboratory Results
09/20/24
06:50
WBC 7.2
Hgb 9.6 L
Hct 30.1 L
Plt Count 217
Sodium 137
Potassium 3.5
Chloride 104
Carbon Dioxide 25
BUN 8
Creatinine 0.8
Glucose 108 H
Calcium 8.6
Total Bilirubin 2.7 H
AST 205 H
ALT 320 H
Alkaline Phosphatase 106
Vital Signs:
Vital Signs
Temp Pulse Resp BP Pulse Ox
97.9 F 73 16 143/82 97
09/20/24 07:00 09/20/24 07:00 09/20/24 07:00 09/20/24 07:00 09/20/24 07:00
I&O
09/19/24 09/20/24 09/21/24
06:59 06:59 06:59
Intake Total 170 / 170 960 / 960 650 / 650
Balance 170 / 170 960 / 960 650 / 650
Physical Exam
-
General: No Apparent Distress
HEENT: Normocephalic and Atraumatic
Respiratory: Negative Wheezes
Cardiac: Regular Rhythm and S1/S2
GI: Soft and Nontender
Genito-urinary: No Costovertebral Tender
Neuro: AO x 3
Psych: Calm
Data Reviewed
-
Total Time Spent with Patient (in minutes): 42
Labs: Labs Reviewed by me
[2024-09-20] MEDS: DILAUDID 0.5 MG IV ×2 (11:23→18:40)
[2024-09-20 15:10] VITALS: BP 144/74
[2024-09-20 23:31] VITALS: BP 120/74
[2024-09-21] VITALS (9 sets, daily range): BP systolic 141–187; BP diastolic 76–99
[2024-09-21] MEDS: ZOSYN 50 IV ×4 (04:53→21:09)
[2024-09-21] MEDS: FLUSH (NSS) 2 FLUSH IV (04:54)
[2024-09-21 07:50] LABS: % Basophils 0.8 % (0-2); % Eosinophils 6.4 % (0-6); % Immature Granulocytes 0.3 % (0-0.5); % Monocytes 10.5 % (1.7-9.3); Absolute Basophils 0.1 10^3/uL (0-0.2); Absolute Eosinophils 0.4 10^3/uL (0-0.7); Absolute Lymphocytes 1.1 10^3/uL (1.2-3.4); Absolute Monocytes 0.6 10^3/uL (0.1-0.6); Absolute Neutrophils 3.9 10^3/uL (1.4-6.5); Hematocrit 29.3 % (37.0-47.0); Hemoglobin 9.5 g/dL (12.0-16.0); Mean Corp Hgb Conc. 32.4 g/dL (33.0-37.0); Mean Corpuscular Hgb 25.5 pg (27.0-31.0); Mean Corpuscular Volume 78.6 fL (81.0-99.0); Mean Platelet Volume 10.9 fL (7.4-10.4); Nucleated Red Blood Cells % 0 %; Platelet Count 206 10^3/uL (130-400); Red Blood Cell Count 3.73 10^6/uL (4.20-5.40); Red Cell Dist. Width 14.5 % (11.5-14.5); White Blood Cell Count 6.1 10^3/uL (4.8-10.8)
[2024-09-21] MEDS: PROTONIX IV 40 MG IV (08:24)
[2024-09-21] MEDS: NSS (PRESERVATIVE FREE) 10 ML IV (08:24)
[2024-09-21] MEDS: TORADOL 10 MG IV (08:25)
[2024-09-21] MEDS: COREG 6.25 MG PO ×2 (08:27→21:08)
[2024-09-21 09:00] LABS: ALT (SGPT) 400 U/L (0-35); AST (SGOT) 284 U/L (14-36); Albumin 3.4 g/dl (3.5-5.0); Alkaline Phosphatase 113 U/L (38-126); Blood Urea Nitrogen 4 mg/dl (7-17); Calcium 8.7 mg/dl (8.4-10.2); Carbon Dioxide 26 mmol/L (22-30); Chloride 105 mmol/L (98-107); Direct Bilirubin 1.3 mg/dl (0.0-0.4); Estimated Creatinine Clearance 120 ml/min; Glucose 103 mg/dl (70-99); Potassium 3.6 mmol/L (3.5-5.1); Sodium 138 mmol/L (135-145); Total Bilirubin 1.9 mg/dl (0.2-1.3); eGFR > 60.00
--- NOTE | 2024-09-21 09:06 | W.PN.GS2 ---
Addendum entered and electronically signed by Ollie Herman MD 09/21/24 09:20:
Patient seen and examined. Agree assessment plan as documented below.
Clinically stable. Abdomen overall benign though with some discomfort.
-- ERCP today
-- Tentative plans for lap natasha during this admission
Original Note:
Today's Communication / Plan
-
ERCP today
Assessment / Plan
-
44 yo female presenting with choledocholithiasis with elevated LFT's
AFVSS
LFT's trended down since initial ERCP, but remain elevated
No leukocytosis
PPD#3 ERCP with failed cannulation, status post pancreatic duct stent
--NPO for ERCP today
--Tentative lap natasha tomorrow pending ERCP findings, will make NPO after MN
--Analgesics/antiemetics prn
Subjective Data
-
Date of Service: September 21, 2024
Denies n/v. Some epigastric pain/discomfort persists. NPO for ERCP today
Objective Data
-
Intake and Output
09/20/24 09/21/24 09/22/24
06:59 06:59 06:59
Intake Total 960 / 960 3010 / 3010
Balance 960 / 960 3010 / 3010
Intake:
Oral fluids 960 / 960 1600 / 1600
IV fluids (Total) 1210 / 1210
IV piggybacks 200 / 200
Other:
Number of approximated MODERATE 3 5
amounts of urine
Vital Signs
Temp Pulse Resp BP Pulse Ox
97.8 F 69 18 187/96 98
09/21/24 08:00 09/21/24 08:27 09/21/24 08:00 09/21/24 08:27 09/21/24 08:00
Lab Results
09/21/24 07:37
09/21/24 07:37
Calcium 8.7 mg/dl (8.4-10.2) 09/21/24 07:37
Magnesium 2.0 mg/dl (1.6-2.3) 09/18/24 05:48
Total Bilirubin 1.9 mg/dl (0.2-1.3) H 09/21/24 07:37
Direct Bilirubin 1.3 mg/dl (0.0-0.4) H 09/21/24 07:37
AST 284 U/L (14-36) H 09/21/24 07:37
ALT 400 U/L (0-35) H 09/21/24 07:37
Alkaline Phosphatase 113 U/L (38-126) 09/21/24 07:37
Total Protein 6.0 g/dl (6.3-8.2) L 09/21/24 07:37
Albumin 3.4 g/dl (3.5-5.0) L 09/21/24 07:37
Physical Exam
-
NAD
ABD soft, tender to epigastric area/RUQ, nd
[2024-09-21] MEDS: DILAUDID 0.5 MG IV (10:31)
[2024-09-21] MEDS: LR 1000 IV (10:32)
--- NOTE | 2024-09-21 13:11 | W.PN.HOSP.TC ---
Today's Communication/Plan
-
repeat ERCP today
Assessment / Plan
Assessment / Plan
Assessment:
Choledocholithiasis with elevated T. Bili and elevated LFTs
- CT: Choledocholithiasis with common bile duct dilatation. Cholelithiasis
- s/p ERCP 09/18: with failed cannulation, status post pancreatic duct stent
- repeat ERCP planned today
- GS consulted; lap natasha timing TBD pending repeat ERCP results
- pain control, anti-emetics
- continue IV Zosyn, day 4
- diet: NPO for procedure
- trend LFTs
Hypokalemia
- continue KCL replacement
- mag normal
GERD
Graves esophagus
- IV PPI continues
Essential HTN by history
- hold HCTZ
- continue Carvedilol
Anemia, slightly microcytic
- normal indices
- outpatient management
DVT ppx: Lovenox held as patient with active menses. SCDs ordered.
Code: Full
Anticipated Discharge: 24 - 48 hours
Subjective/Interval History
-
Date of Service: September 21, 2024
some epigastric pain, discomfort but no n/v, no fever/chills
ERCP today
Objective Data
-
Labs:
Laboratory Results
09/21/24
07:37
WBC 6.1
Hgb 9.5 L
Hct 29.3 L
Plt Count 206
Sodium 138
Potassium 3.6
Chloride 105
Carbon Dioxide 26
BUN 4 L
Creatinine 0.7
Glucose 103 H
Calcium 8.7
Total Bilirubin 1.9 H
AST 284 H
ALT 400 H
Alkaline Phosphatase 113
Vital Signs:
Vital Signs
Temp Pulse Resp BP Pulse Ox
97.8 F 71 18 154/88 98
09/21/24 08:00 09/21/24 09:43 09/21/24 08:00 09/21/24 09:43 09/21/24 11:20
I&O
09/20/24 09/21/24 09/22/24
06:59 06:59 06:59
Intake Total 960 / 960 3010 / 3010
Balance 960 / 960 3010 / 3010
Physical Exam
-
General: No Apparent Distress
HEENT: Normocephalic and Atraumatic
Respiratory: Negative Wheezes
Cardiac: Regular Rhythm and S1/S2
GI: Soft
Genito-urinary: No Costovertebral Tender
Neuro: AO x 3
Psych: Calm
Data Reviewed
-
Total Time Spent with Patient (in minutes): 42
Labs: Labs Reviewed by me
[2024-09-22] VITALS (7 sets, daily range): BP systolic 126–157; BP diastolic 64–98
[2024-09-22] MEDS: ZOSYN 50 IV ×2 (04:03→10:07)
[2024-09-22] MEDS: LR 1000 IV (04:05)
[2024-09-22 06:53] LABS: Hematocrit 33.4 % (37.0-47.0); Hemoglobin 10.7 g/dL (12.0-16.0); Mean Corpuscular Hgb 25.2 pg (27.0-31.0); Mean Corpuscular Volume 78.8 fL (81.0-99.0); Mean Platelet Volume 11.7 fL (7.4-10.4); Platelet Count 223 10^3/uL (130-400); Red Blood Cell Count 4.24 10^6/uL (4.20-5.40); Red Cell Dist. Width 14.4 % (11.5-14.5); White Blood Cell Count 6.7 10^3/uL (4.8-10.8)
[2024-09-22 07:29] LABS: ALT (SGPT) 503 U/L (0-35); AST (SGOT) 316 U/L (14-36); Albumin 3.7 g/dl (3.5-5.0); Alkaline Phosphatase 114 U/L (38-126); Blood Urea Nitrogen 6 mg/dl (7-17); Calcium 9.2 mg/dl (8.4-10.2); Carbon Dioxide 25 mmol/L (22-30); Chloride 102 mmol/L (98-107); Estimated Creatinine Clearance > 125 ml/min; Glucose 115 mg/dl (70-99); Potassium 4.2 mmol/L (3.5-5.1); Sodium 137 mmol/L (135-145); Total Bilirubin 1.5 mg/dl (0.2-1.3); Total Protein 6.5 g/dl (6.3-8.2); eGFR > 60.00
--- NOTE | 2024-09-22 07:32 | PTCARENOTE ---
Lab informed this RN of critical ALT, result= [id number]. Providers made aware via TT.
--- NOTE | 2024-09-22 08:11 | OR.RPT ---
Operative Report
Operative Report
Primary Surgeon: Saad
Assisting: Suzanne PACHECO
Pre-op Diagnosis: Biliary pancreatitis
Post-op Diagnosis: Same
Procedure Performed: Robot assisted laparoscopic cholecystectomy
Anesthesia Type: GETA
Specimen / Cultures: Gallbladder
Estimated Blood Loss: 2cc
Complications: None immediate
Operative Findings: Softly distended intrahepatic gallbladder with thin omental adhesions and thickened wall
Date of Surgery:� 09/22/24
Indications: This 44F developed biliary pancreatitis. After her pancreatitis cooled down, laparoscopic cholecystectomy with robotic assist was elected.
Description of procedure: The patient was placed on the operating table in the supine position. General anesthesia was induced. A time-out was completed verifying correct patient, procedure, site, positioning, and special equipment prior to
beginning this procedure. An orogastric tube was placed. The abdomen was prepped and draped in the usual sterile fashion. A stab incision was made in left upper quadrant and the Veress needle was inserted. Proper position was confirmed by aspiration
and saline meniscus test. The abdomen was insufflated with carbon dioxide to a pressure of 12mmHg. The patient tolerated insufflation well.
A 8mm trocar was then inserted above the umbilicus. The laparoscope was inserted and the abdomen inspected. No injuries from initial trocar placement or Veress needle insertion were noted. Additional 8mm trocars were then inserted in the following
locations: two in the right lower quadrant and to the left of the umbilicus and just above. The abdomen was inspected and no abnormalities were found. The table was placed in the reverse Trendelenburg position with the right side up. The dome of the
gallbladder was grasped with an atraumatic grasper and retracted over the dome of the liver. Thin omental adhesions were carefully teased down with gently blunt sweeps and judicious hook cautery. The infundibulum was then grasped with an atraumatic
grasper and retracted toward the right lower quadrant. This maneuver exposed Calot�s triangle. The peritoneum overlying the gallbladder infundibulum was then incised and the cystic duct and cystic artery identified and circumferentially dissected so
that a clear view of the liver was achieved through a window between the cystic duct an cystic artery. At this time, the only two structures going into the gallbladder were the cystic artery and cystic duct.
The cystic duct was then doubly clipped and divided. The cystic artery was controlled with bipolar and divided. The gallbladder was then dissected from its peritoneal attachments by electrocautery. The posterior plane was fibrotic. The gallbladder
was removed using an endoscopic retrieval bag placed through the umbilical port. The gallbladder was passed off the table as a specimen. The gallbladder fossa was closely inspected. There was no evidence of bleeding from the gallbladder fossa or
cystic artery or leakage of the bile from the cystic duct stump. The umbilical trocar site was closed at the fascial level with 2-0 PDS. Secondary trocars were removed under direct vision and noted to be hemostatic. The abdomen was allowed to
collapse. The skin was closed with subcuticular sutures of 4-0 monocryl and topical skin adhesive. The orogastric tube was removed.
The patient tolerated the procedure well and was taken to the postanesthesia care unit in stable condition.
--- NOTE | 2024-09-22 08:45 | CM ---
Chart reviewed and plan is for patient to return to home when stable.
Plan; Home when stable, no needs
[2024-09-22] MEDS: DILAUDID 0.25 MG IV (08:53)
[2024-09-22] MEDS: COREG 6.25 MG PO (10:02)
[2024-09-22] MEDS: PROTONIX IV 40 MG IV (10:02)
[2024-09-22] MEDS: NSS (PRESERVATIVE FREE) 10 ML IV (10:03)
--- NOTE | 2024-09-22 10:12 | PTCARENOTE ---
Received pt OR via bed. AAOx3. No complaints of pain. Abd assessed, 5 laparoscopic sites observed. Will cont to monitor.
--- NOTE | 2024-09-22 11:15 | W.PN.GI.CBS2 ---
Today's Communication / Plan
-
1. CBD stones: Status post ERCP with failed cannulation, status post pancreatic duct stent, subsequently had ERCP 09/21/2024, now status post biliary sphincterotomy, balloon extraction of the stone and removal of the pancreatic duct stent.
She is now status post cholecystectomy and doing well. On regular diet
Noted bili is trending down but AST and ALT did go up. Alkaline phosphatase in normal range.
Trend LFTs, if she is going home today, she will need to repeat LFTs and of the week and also 2 weeks after.
Communicated with the hospitalist regarding this.
Assessment / Plan
-
1. CBD stones: Status post ERCP with failed cannulation, status post pancreatic duct stent, subsequently had ERCP 09/21/2024, now status post biliary sphincterotomy, balloon extraction of the stone and removal of the pancreatic duct stent.
She is now status post cholecystectomy and doing well. On regular diet
Noted bili is trending down but AST and ALT did go up. Alkaline phosphatase in normal range.
Trend LFTs, if she is going home today, she will need to repeat LFTs and of the week and also 2 weeks after.
Communicated with the hospitalist regarding this.
Subjective
Subjective
Date of Service: September 22, 2024
Patient postop laparoscopic cholecystectomy and currently is doing well.
Objective
Data Reviewed
Laboratory Data:
Laboratory Results
09/22/24 06:24
09/22/24 06:24
Laboratory Results
PT 14.4 Sec (11.4-14.6) 09/17/24 22:44
INR 1.07 09/17/24 22:44
APTT 29.6 Sec (23.4-35.0) 09/17/24 22:44
Magnesium 2.0 mg/dl (1.6-2.3) 09/18/24 05:48
Total Bilirubin 1.5 mg/dl (0.2-1.3) H 09/22/24 06:24
AST 316 U/L (14-36) H 09/22/24 06:24
ALT 503 U/L (0-35) H* 09/22/24 06:24
Alkaline Phosphatase 114 U/L (38-126) 09/22/24 06:24
Lipase 102 U/L (23-300) 09/17/24 22:44
Vital Signs and I&O:
Vital Signs
Temp Pulse Resp BP Pulse Ox
97.8 F 60 16 146/78 99
09/22/24 09:32 09/22/24 10:37 09/22/24 10:37 09/22/24 10:37 09/22/24 10:37
I&O
09/21/24 09/22/24 09/23/24
06:59 06:59 06:59
Intake Total 3010 / 3010 290 / 290 80 / 80
Balance 3010 / 3010 290 / 290 80 / 80
Physical Exam
Physical Exam
GI: Soft and Non Tender (Postop discomfort but otherwise unremarkable abdominal exam)
--- NOTE | 2024-09-22 11:42 | W.PN.HOSP.TC ---
Today's Communication/Plan
-
dc to home
Assessment / Plan
Assessment / Plan
Assessment:
Choledocholithiasis with elevated T. Bili and elevated LFTs
- CT: Choledocholithiasis with common bile duct dilatation. Cholelithiasis
- s/p ERCP 09/18: with failed cannulation, status post pancreatic duct stent
- repeat ERCP 09/21: now status post biliary sphincterotomy, balloon extraction of the stone and removal of the pancreatic duct stent.
- s/p lap ntaasha 09/22
- dc on regular diet
- GI f/u in 3 weeks - LFTs this week and 2 weeks after - script given
- GS f/u
- no need for Abx per GS
- pain control, anti-emetics at discharge
Hypokalemia
- continue KCL replacement
- mag normal
GERD
Graves esophagus
- PPI continues
Essential HTN by history
- hold HCTZ
- continue Carvedilol
Anemia, slightly microcytic
- normal indices
- outpatient management
DVT ppx: Lovenox held as patient with active menses. SCDs ordered.
Code: Full
More than 30 minutes spent in discharge including
Final examination of the patient
Summarizing hospital stay
Instructions for continuing care to all relevant caregivers
Preparation of discharge records, prescriptions, and referral forms
Total time spent (in minutes): 42
Anticipated Discharge: Today
Subjective/Interval History
-
Date of Service: September 22, 2024
s/p lap natasha
tolerating diet
no pain, no nausea
Objective Data
-
Labs:
Laboratory Results
09/22/24
06:24
WBC 6.7
Hgb 10.7 L
Hct 33.4 L
Plt Count 223
Sodium 137
Potassium 4.2
Chloride 102
Carbon Dioxide 25
BUN 6 L
Creatinine 0.6
Glucose 115 H
Calcium 9.2
Total Bilirubin 1.5 H
AST 316 H
ALT 503 H*
Alkaline Phosphatase 114
Vital Signs:
Vital Signs
Temp Pulse Resp BP Pulse Ox
97.8 F 60 16 146/78 99
09/22/24 09:32 09/22/24 10:37 09/22/24 10:37 09/22/24 10:37 09/22/24 10:37
I&O
09/21/24 09/22/24 09/23/24
06:59 06:59 06:59
Intake Total 3010 / 3010 290 / 290 80 / 80
Balance 3010 / 3010 290 / 290 80 / 80
Physical Exam
-
General: No Apparent Distress
HEENT: Normocephalic and Atraumatic
Respiratory: Negative Wheezes
Cardiac: Regular Rhythm and S1/S2
GI: Soft and Nontender
Genito-urinary: No Costovertebral Tender
Musculoskeletal: No Edema
Neuro: AO x 3
Hematologic / Lymphatic: No Lymphadenopathy
Psych: Calm
Data Reviewed
-
Total Time Spent with Patient (in minutes): 42
Labs: Labs Reviewed by me
--- NOTE | 2024-09-22 11:49 | W.DS.TRANS ---
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
-
Discharge Instructions:
Discharge Diagnosis/Procedures elevated LFTs from choledocholithiasis s/p ERCP
x 2 and lap natasha
Diet Regular
Additional Diets If you have loose stools or bloating switch to a
low fat diet
Activity No strenuous activity
Additional Activity do not lift over 15lbs for the next 2-3 weeks
Bathing Restrictions OK to Shower
Wound Care Allow the glue to flake off your incisions over
the next 2-3 weeks. Avoid scrubbing or picking
it off.
Instructions: Cholecystectomy - Discharge instructions
Stand-Alone Forms:
Changes to Home Medications: No
Discharge Medications:
DC Medications w/original date entered in [facility]
carvedilol 6.25 mg tablet 6.25 mg PO BID Blood Pressure 09/18/24
hydrochlorothiazide 12.5 mg tablet 12.5 mg PO DAILY Blood Pressure 09/18/24
esomeprazole magnesium 40 mg capsule,delayed release 40 mg PO DAILY Gastrointestinal Issue 09/21/24
ondansetron 4 mg disintegrating tablet 4 mg PO Q8H PRN nausea and vomiting #15 tabs 09/22/24
oxycodone 5 mg tablet 5 - 10 mg (1 - 2 x 5 mg) PO Q4HPRN PRN moderate to severe pain #16 tabs 09/22/24
Home Medication Changes
Pending Results: No
Total time spent discharging patient (in min): 41
== END 2024-09-22 12:57 | disposition home or self-care (01) | DRG 419 ==
LOC: 3 WEST ACU 02:04
PROVIDERS: Internal Medicine Gastroenterology; Surgery; ADMITTING PHYSICIAN Internal Medicine; ATTENDING PHYSICIAN Internal Medicine; CONSULT PHYSICIAN Specialist; EMERGENCY PHYSICIAN Student in an Organized Health Care Education/Training Program; OTHER PHYSICIAN Surgery
PROC: 0F7D8DZ Dilation of Pancreatic Duct with Intraluminal Device, Via Natural or Artificial Opening Endoscopic (ICD-10-PCS; 2024-09-18)
PROC: 0FC98ZZ Extirpation of Matter from Common Bile Duct, Via Natural or Artificial Opening Endoscopic (ICD-10-PCS; 2024-09-21)
PROC: 0FPD8DZ Removal of Intraluminal Device from Pancreatic Duct, Via Natural or Artificial Opening Endoscopic (ICD-10-PCS; 2024-09-21)
PROC: 0FT44ZZ Resection of Gallbladder, Percutaneous Endoscopic Approach (ICD-10-PCS; 2024-09-22)
DX: K80.70 Calculus of gallbladder and bile duct without cholecystitis without obstruction (principal); I10 Essential (primary) hypertension; K21.9 Gastro-esophageal reflux disease without esophagitis; K22.70 Barrett's esophagus without dysplasia; E87.6 Hypokalemia; D50.9 Iron deficiency anemia, unspecified
CPT/HCPCS: 88304; 74177; 74330; 76000; 76700; 80053; 81003; 81015; 82248; 82607; 82728; 82746; 83540; 83550; 83690; 83735; 84703; 85025; 85027; 85610; 85730; 96361; 96365; 96375; 99285; C1726; C1769; C2617; Q9967